=== PATIENT | female | born 1970 | race Caucasian/White ===

== ENCOUNTER → 2018-06-19 | Outpatient (CLI) | payer BC ==
--- NOTE | 2018-06-19 12:04 | Diagnostic Imaging Report ---
INDICATION: Routine screening. Comparison is made with prior mammogram from 07/21/2016 and 12/10/2014. 2-D and 3-D bilateral screening mammography was performed with CAD. The current study was also evaluated with a Computer Aided Detection (CAD) system. FINDINGS: Both breasts remain heterogeneously dense, limiting the sensitivity of mammography. The parenchymal pattern appears stable. No dominant mass or malignant-appearing microcalcifications are seen. The axillae are unremarkable. IMPRESSION: No mammographic features suspicious for malignancy are identified. ACR BI-RADS Category 1: Negative. Result letter will be mailed to the patient. Note: At least 10% of breast cancer is not imaged by mammography. Dictated by: Dictated on workstation # [id number]
== END ==
LOC: RAD 10:47
PROVIDERS: ATTEND Internal Medicine
DX: Z12.31 Encounter for screening mammogram for malignant neoplasm of breast (principal)
CPT/HCPCS: 77067

== ENCOUNTER → 2020-04-22 | Outpatient (CLI) | payer BC, OTHER ==
--- NOTE | 2020-04-22 20:10 | Diagnostic Imaging Report ---
INDICATION: Screening. At this time there are no current complaints. EXAMINATION: Bilateral digital screening mammogram with CAD. 3D tomographic images were obtained and reviewed. The current study was also evaluated with a Computer Aided Detection (CAD) system. COMPARISON: This study was compared to the prior exams 06/19/2018, 07/21/2016 and 12/10/2014. FINDINGS: The fibroglandular tissue in both breasts is heterogeneously dense. This does limit the sensitivity of this exam. In the 5 o'clock position of the right breast, approximately 6 cm from the nipple, there is a 6 mm asymmetry. This finding was not clearly evident on the prior study. I would recommend that a compression view of this area be obtained in the CC and MLO projections for further study. Ultrasound should also be performed. The overall appearance of the breasts has not changed significantly otherwise. There is no primary or secondary sign of malignancy noted. IMPRESSION: Additional mammographic views and ultrasound of the right breast would be recommended for further study. ACR BI-RADS Category 0: Incomplete. (Needs additional imaging evaluation). Result letter will be mailed to the patient. Note: At least 10% of breast cancer is not imaged by mammography. Dictated by: Dictated on workstation # [id number]
== END ==
LOC: RAD 10:15
PROVIDERS: ATTEND Internal Medicine
DX: Z12.31 Encounter for screening mammogram for malignant neoplasm of breast (principal)
CPT/HCPCS: 77063; 77067

== ENCOUNTER → 2020-04-28 | Outpatient (CLI) | payer OTHER ==
--- NOTE | 2020-04-28 08:30 | Diagnostic Imaging Report ---
INDICATION: Right breast density. Patient presents for additional views. Correlation is made with recent screening study from 04/22/2020. Unilateral right 2-D and 3-D diagnostic mammography was performed with CAD. This included spot compression CC and ML views as well as conventional 90 degree lateral views. There is a persistent slightly lobulated density in the lower inner right breast approximately 5 to 6 cm from the nipple. This may represent a small cluster of cysts. No other abnormality is detected. IMPRESSION: BI-RADS 0 Persistent density lower inner right breast 5-6 cm from the nipple. Further evaluation with ultrasound is recommended and will be performed today. ACR BI-RADS Category 0: Incomplete. (Needs additional imaging evaluation). Result letter will be mailed to the patient. Note: At least 10% of breast cancer is not imaged by mammography. Dictated by: Dictated on workstation # [id number]
--- NOTE | 2020-04-28 09:05 | Diagnostic Imaging Report ---
INDICATION: Right breast density. Correlation is made with diagnostic mammogram earlier the same day and screening mammogram from 04/22/2020. Sonographic interrogation of the lower inner right breast was performed. There is a cluster of cysts at the 4:00 location, 4 cm from the nipple measuring in aggregate 7 mm x 6 mm x 6 mm. This correlates in size and location to the mammographic density. No internal vascularity is present. No other abnormalities are detected. IMPRESSION: BI-RADS Category 2 Cluster of cysts 4:00 location right breast, 4 cm from the nipple correlating with the mammographic density. Patient may return to routine annual screening mammography. ACR BI-RADS Category 2: Benign findings. Dictated by: Dictated on workstation # [id number]
== END ==
LOC: RAD 08:15
PROVIDERS: ATTEND Internal Medicine
DX: R92.8 Other abnormal and inconclusive findings on diagnostic imaging of breast (principal); N60.01 Solitary cyst of right breast
CPT/HCPCS: 76642; 77065; G0279

== ENCOUNTER 2020-06-30 08:32 | Outpatient (CLI) | payer OTHER ==
[~2020-06-30] VITALS: Ht 162.6 cm; Wt 61.4 kg
[2020-06-30] MEDS ORDERED: IRON DEXTRAN 1,000 MG/NS 250 ML IVPB IV ONE ×2 (09:00)
[2020-06-30] MEDS ORDERED: IRON DEXTRAN 25 MG/NS 6.25 ML TOTAL VOLUME IV ONE ×3 (09:00)
[2020-06-30 11:00] VITALS: BP 124/70
== END 2020-06-30 11:00 | disposition home or self-care (01) ==
LOC: SDC 08:32
PROVIDERS: ATTEND Internal Medicine
DX: E61.1 Iron deficiency (principal)
CPT/HCPCS: 96365

== ENCOUNTER → 2022-01-17 | Outpatient (CLI) | payer BC, OTHER ==
--- NOTE | 2022-01-17 14:28 | Diagnostic Imaging Report ---
INDICATION: Routine screening. COMPARISON: 04/22/2020 and 06/19/2018. TECHNIQUE: 2D and 3D bilateral screening mammography was performed with CAD. FINDINGS: Both breasts are heterogeneously dense, limiting the sensitivity of mammography. A new circumscribed density in the upper and outer aspect of the right breast is noted 4 cm from the nipple. This may represent a cyst. The left breast is unremarkable. No malignant-appearing microcalcifications are seen. The axillae are unremarkable. IMPRESSION: Probable new cyst in the upper outer right breast 4 cm from the nipple. Further evaluation with ultrasound is recommended. ACR BI-RADS Category 0: Incomplete. (Needs additional imaging evaluation). Result letter will be mailed to the patient. Note: At least 10% of breast cancer is not imaged by mammography. Dictated by: Dictated on workstation # [id number]
== END ==
LOC: RAD 09:00
PROVIDERS: ATTEND Internal Medicine
DX: Z12.31 Encounter for screening mammogram for malignant neoplasm of breast (principal)
CPT/HCPCS: 77063; 77067

== ENCOUNTER → 2022-01-26 | Outpatient (CLI) | payer BC ==
--- NOTE | 2022-01-26 09:49 | Diagnostic Imaging Report ---
Indication: Right breast density. Study is performed for further evaluation. Correlation is made with diagnostic mammogram performed on 01/17/2022. Sonographic interrogation upper outer right breast demonstrates a benign appearing cyst at the 10:00 location, 4 cm from the nipple measuring 6 mm x 4 mm x 5 mm. This corresponds to the density noted mammographically. No internal blood flow seen. No other masses are detected. IMPRESSION: BI-RADS Category 2 Benign cyst at the 10:00 location right breast, 4 cm from the nipple corresponding with the mammographic density. The patient may return to routine annual screening mammography. ACR BI-RADS Category 2: Benign findings. Dictated by: Dictated on workstation # [id number]
== END ==
LOC: RAD 09:15
PROVIDERS: ATTEND Internal Medicine
DX: N60.01 Solitary cyst of right breast (principal)

== ENCOUNTER → 2022-03-20 | Outpatient (CLI) | payer BC ==
[2022-03-20 10:39] LABS: HEMATOCRIT 44 % (35-52); HEMOGLOBIN 14.6 g/dL (11.5-16.0); MEAN CORPUSCULAR HEMOGLOBIN 31 pg (25-34); MEAN CORPUSCULAR HGB CONC 33 g/dL (32-36); MEAN CORPUSCULAR VOLUME 94 fL (80-99); MEAN PLATELET VOLUME 10.2 fL (9.0-12.2); PLATELET COUNT 304 10^3/uL (130-400); WHITE BLOOD COUNT 8.6 10^3/uL (4.3-11.0)
[2022-03-20 10:56] LABS: CALCIUM 9.7 MG/DL (8.5-10.1); CREATININE SERUM 0.77 MG/DL (0.60-1.30); POTASSIUM 4.1 MMOL/L (3.6-5.0)
== END ==
LOC: LAB 09:51
PROVIDERS: ATTEND Surgery
DX: Z01.818 Encounter for other preprocedural examination (principal)
CPT/HCPCS: 36415; 80048; 85027; 93005